=== PATIENT | female | born 1970 | race Caucasian/White ===

== ENCOUNTER 2016-09-20 04:34 | Emergency (ER) ==
[2016-09-20] MEDS ORDERED: SOLU-MEDROL IV ONE (04:48)
[2016-09-20] MEDS ORDERED: ROCEPHIN 1 GM/NS 50 ML IV ONE (04:48)
[2016-09-20] MEDS ORDERED: TORADOL IV ONE (04:48)
[2016-09-20] MEDS ORDERED: ZITHROMAX 500 MG/NS 250 ML IV ONE (04:49)
[2016-09-20] MEDS ORDERED: DUONEB (A & A) INH ONE (04:49)
[2016-09-20 04:50] LABS: MANUAL DIFF NEEDED? NO
--- NOTE | 2016-09-20 04:50 | PROVIDER DOCUMENTATION ---
HPI-Respiratory General - General Chief Complaint: Flu Symptoms Stated Complaint: COUGH,FEVER Time Seen by Provider: 09/20/16 04:45 Source: patient Unable to obtain history due to:: urgency Allergies/Adverse Reactions: Patient Allergies Allergy/AdvReac Type Severity Reaction Status Date / Time No Known Allergies Allergy Verified 04/29/14 13:47 Home Medications: Home Medication List Medication Instructions Recorded Confirmed Last Taken Type Estradiol 2 mg PO DAILY #30 tablet 03/07/13 09/20/16 09/19/16 Rx Albuterol Sulfate Inhaler 2 puff INH Q6H PRN PRN #1 inhaler 09/20/16 Unknown Rx [Ventolin Hfa] Azithromycin [Zithromax Z-Carson] 250 mg PO DIRECTED #1 pkg 09/20/16 Unknown Rx Benzonatate [Tessalon] 100 mg PO TID PRN PRN #60 capsule 09/20/16 Unknown Rx Doxycycline Monohydrate 100 mg PO BID #20 tablet 09/20/16 Unknown Rx Escitalopram Oxalate [Lexapro] 20 mg PO DAILY 09/20/16 09/20/16 09/19/16 History Oseltamivir [Tamiflu] 75 mg PO BID #10 capsule 09/20/16 Unknown Rx Prednisone 20 mg PO BID #10 tablet 09/20/16 Unknown Rx - History of Present Illness-Resp Quality of Pain: reports: aching Onset/Duration: reports: abrupt Timing: reports: still present Context: reports: multiple patients with similar complaints Exposure: reports: unknown cause Cough Quality/Degree: reports: mild Episode Frequency: no prior episodes Current Respiratory Medication Therapy: Initiated see nurses note Modifying Factors: improves with: exertion Similar Symptoms Previously?: Yes Recently seen or treated by another doctor?: Yes Review of Systems - Adult - REVIEW OF SYSTEMS - ADULT Constitutional: reports: no symptoms reported Eyes: reports: no symptoms reported Ears, Nose, Mouth & Throat: reports: no symptoms reported Cardiovascular: reports: no symptoms reported Respiratory: reports: no symptoms reported Gastrointestinal: reports: no symptoms reported Genitourinary: reports: no symptoms reported Musculoskeletal: reports: no symptoms reported Integumentary: reports: no symptoms reported Neurological: reports: no symptoms reported Psychiatric: reports: no symptoms reported Endocrine: reports: no symptoms reported Hematologic/Lymphatic: reports: no symptoms reported Allergic/Immunologic: reports: no symptoms reported All Other Systems: Reviewed and Negative Past History - Adult - PAST MEDICAL HISTORY-ADULT Review of Records: reports: Old Records Reviewed, Nursing Assessment Review, Medications Reviewed, Social history reviewed & non-contributory. Major Childhood Illnesses: reports: denies history Cardiovascular: reports: denies history Respiratory: reports: denies history Gastrointestinal: reports: denies history Obstetrical/Gynecological: reports: denies history Genitourinary: reports: denies history Musculoskeletal: reports: denies history Neurological: reports: denies history Endocrine/Immune: reports: denies history Other Conditions: reports: denies history - PRIOR SURGERIES/PROCEDURES Surgical/Procedure History: reports: appendectomy, cholecystectomy, hysterectomy , - IMMUNIZATION STATUS Childhood Immunizations: See Nurse Assessment Flu Vaccine: See Nurse Assessment - FAMILY HISTORY Family History: reviewed, not pertinent Physical Exam-General - PHYSICAL EXAM-ADULT Initial Vital Signs Reviewed: Yes - CONSTITUTIONAL General Appearance: appears well - EYES Eyes: pink conjunctivae - HEAD, EARS, NOSE, MOUTH & THROAT HENMT: moist mucous membranes - NECK Neck: non-tender - RESPIRATORY Respiratory: wheezing - CARDIOVASCULAR Cardiovascular: normal peripheral pulses - CHEST (BREASTS) Chest/Breast: no masses/lumps - GASTROINTESTINAL (ABDOMEN) Abdominal Exam: no organomegaly - LYMPHATIC Lymphatic: cervical node tenderness - MUSCULOSKELETAL Back Exam: no CVA tenderness Extremity: normal inspection - SKIN Integumentary: blanching - PSYCHIATRIC Psych/Mental Status: normal mood/affect Departure - Departure Time of Disposition Order: 05:30 DIAGNOSIS: Influenza A Disposition: HOME 01 Certified Medical Emergency: Emergent Condition: Stable Prescriptions: Doxycycline Monohydrate 100 mg PO BID #20 tablet Prednisone 20 mg PO BID #10 tablet Oseltamivir [Tamiflu] 75 mg PO BID #10 capsule Benzonatate [Tessalon] 100 mg PO TID PRN PRN #60 capsule PRN Reason: Cough Albuterol Sulfate Inhaler [Ventolin Hfa] 2 puff INH Q6H PRN PRN #1 inhaler PRN Reason: Wheezing Azithromycin [Zithromax Z-Carson] 250 mg PO DIRECTED #1 pkg Referrals: Reinaldo Campbell MD [Primary Care Provider] -
[2016-09-20 05:12] LABS: BASO% 0.3 % (0.0-0.8); EOS# 0.23 X1000 (0.0-0.7); EOS% 3.1 % (0.0-10.0); HEMATOCRIT 41.1 % (37.0-47.0); HEMOGLOBIN 13.9 g/dL (12.0-16.0); IMM GRAN# 0.01 X1000 (0.0-0.04); IMM GRAN% 0.1 % (0.0-0.5); LYMPH# 1.57 X1000 (1.2-3.4); MCH 33.1 PG (27-31); MCHC 33.8 g/dL (33-37); MCV 97.9 FL (81-99); MONO# 1.04 X1000 (0.11-0.59); MONO% 13.9 % (1.7-9.3); MPV 9.2 FL (7.4-10.4); NEUT% 61.6 % (42.2-75.2); PLT 297 X1000 (130-400)
[2016-09-20 05:15] LABS: AGAP 13; ALBUMIN 4.2 g/dL (3.5-5.0); ALKALINE PHOSPHATASE 65 U/L (32-104); BUN 6 mg/dL (8-22); CALCIUM 8.7 mg/dL (8.8-10.2); CHLORIDE 103 mmol/L (98-107); COSMO 268; GOT 19 U/L (10-30); GPT 19 U/L (10-36); SODIUM 135 mmol/L (136-145); TCO2 19 mmol/L (25-35); TOTAL PROTEIN 7.2 g/dL (6.3-8.3)
[2016-09-20] MEDS ORDERED: TAMIFLU PO ONE (05:35)
[2016-09-20 05:59] VITALS: BP 103/72
--- NOTE | 2016-09-20 11:09 | Diag Imaging Result Document ---
PROCEDURE NAME: CHEST-2 VIEWS - 09/20/2016 CHEST 2 VIEWS: No comparison exam. FINDINGS: Heart size is normal. There is slight tortuosity of the thoracic aorta. There is nonspecific mild elevation of the anterior right hemidiaphragm which is likely chronic. There is no consolidation, pleural effusion, or pneumothorax identified. There is mild thoracic spondylosis noted. IMPRESSION: No evidence of acute disease.
== END 2016-09-20 06:16 | disposition home or self-care (01) ==
LOC: P.ED 04:34
DX: J11.1 Influenza due to unidentified influenza virus with other respiratory manifestations (principal); R05 Cough; R50.9 Fever, unspecified; Z79.899 Other long term (current) drug therapy
CPT/HCPCS: 71020; 80053; 83605; 85025; 87040; 87081; 87430; 87804; 94640; 96365; 96367; 96375; J0456; J0696; J1885; J2930